=== PATIENT | male | born 1990 | race Two or more races ===

== ENCOUNTER 2024-05-11 08:54 | Inpatient (IN) | payer OTHER ==
[2024-05-11] VITALS (12 sets, daily range): BP systolic 118–150; BP diastolic 53–105; PULSE 53–81; RESP 18–19; TEMP 98.1–98.3
[~2024-05-11] VITALS: Ht 167.6 cm; Wt 86.4 kg
[2024-05-11 09:31] LABS: BASOPHILS % (AUTO) 0.9 % (0.0-2.0); HEMATOCRIT 35.1 % (41-53); HEMOGLOBIN 11.3 g/dL (13.5-17.5); LYMPHOCYTES # (AUTO) 1.5 K/uL (1.0-4.8); LYMPHOCYTES % (AUTO) 21.6 % (22.0-44.0); MEAN CORPUSCULAR HEMOGLOBIN 30.9 pg (26.0-34.0); MEAN CORPUSCULAR HGB CONC 32.1 G/dL (31.0-37.0); MEAN CORPUSCULAR VOLUME 96 fL (80-100); MONOCYTES # (AUTO) 0.5 K/uL (0.1-1.0); MONOCYTES % (AUTO) 7.4 % (2.0-9.0); NEUTROPHILS # (AUTO) 4.5 K/uL (1.8-7.7); NEUTROPHILS % (AUTO) 65.1 % (40.0-70.0); PLATELET COUNT (AUTO) 165 K/uL (150-450); RED BLOOD CELL COUNT(AUTO) 3.64 MIL/uL (4.50-5.90); RED CELL DISTRIBUTION WIDTH 14.1 % (11.5-14.5); WHITE BLOOD COUNT (AUTO) 6.9 K/uL (4.5-11.0)
[2024-05-11 09:39] LABS: CALCIUM, TOTAL 8.8 mg/dL (8.8-10.5); CREATININE 17.01 mg/dL (0.60-1.30)
[2024-05-11] MEDS ORDERED: TAMS0.4C94 PO (11:40)
[2024-05-11] MEDS ORDERED: FAMO20 PO (11:40)
[2024-05-11] MEDS ORDERED: LABE200T56 PO (11:40)
[2024-05-11] MEDS ORDERED: FLUT12AE21 IH (11:40)
[2024-05-11] MEDS ORDERED: [UNRECOGNIZED DRUG - CODE] SQ (11:40)
[2024-05-11] MEDS ORDERED: PRAV40TA4 PO (11:40)
[2024-05-11] MEDS ORDERED: PHOSLOC PO (11:40)
[2024-05-11] MEDS ORDERED: LEVAHFA IH (11:40)
[2024-05-11] MEDS ORDERED: FOLI0.4T6 PO (11:40)
[2024-05-11] MEDS ORDERED: ERGO500054 PO (11:40)
[2024-05-11] MEDS ORDERED: DOCU-385 PO (11:40)
[2024-05-11] MEDS ORDERED: SEVE800T38 PO (11:40)
[2024-05-11] MEDS ORDERED: HEPARIN SODIUM,PORCINE 1,000 UNITS/ML VIAL IVCATH ONE (17:30)
[2024-05-11] MEDS ORDERED: LEVALBUTEROL TARTRATE HFA 45 MCG/PUFF 15 GM INHALER IH PRN (18:45)
[2024-05-11] MEDS ORDERED: ACETAMINOPHEN 325 MG TABLET PO PRN (19:00)
[2024-05-11] MEDS ORDERED: MAGNESIUM HYDROXIDE SUSPENSION 30 ML UDCUP PO PRN (19:00)
[2024-05-11] MEDS ORDERED: HYDROCODONE/ACETAMINOPHEN 5-325 MG TABLET PO PRN (19:00)
[2024-05-11] MEDS ORDERED: BISACODYL 10 MG RECTAL RECTAL SUPPOSITORY PR PRN (19:00)
[2024-05-11] MEDS ORDERED: ALBUTEROL SULFATE 2.5 MG/0.5 ML NEB SOLUTION NEB PRN (19:00)
[2024-05-11] MEDS ORDERED: MORPHINE SULFATE 2 MG/ML SYRINGE IVP PRN (19:00)
[2024-05-11] MEDS ORDERED: IPRATROPIUM BROMIDE 0.5 MG/2.5 ML NEB SOLUTION NEB PRN (19:00)
[2024-05-11] MEDS ORDERED: ONDANSETRON HCL 4 MG/2 ML VIAL IVP PRN (19:00)
[2024-05-11] MEDS ORDERED: ZOLPIDEM TARTRATE 5 MG TABLET PO PRN (19:00)
[2024-05-11] MEDS: HEPARIN SODIUM,PORCINE 1,000 UNITS/ML VIAL IVCATH ONE (19:27)
[2024-05-11] MEDS: FLUTICASONE PROPIONATE HFA 220 MCG/PUFF 12 GM INHR IH SCH (21:00)
[2024-05-11] MEDS: LABETALOL HCL 200 MG TABLET PO SCH (21:00)
[2024-05-11] MEDS: DOCUSATE SODIUM 100 MG CAPSULE PO SCH (21:00)
[2024-05-11] MEDS: CALCIUM ACETATE 667 MG CAPSULE PO SCH (21:09)
[2024-05-11] MEDS: FOLIC ACID/VIT B COMPLEX AND C TABLET PO SCH (21:09)
[2024-05-11] MEDS: SEVELAMER CARBONATE 800 MG TABLET PO SCH (21:10)
[2024-05-11] MEDS: HEPARIN SODIUM,PORCINE 5,000 UNITS/ML VIAL SQ SCH (23:29)
[2024-05-12 04:48] VITALS: BP 138/86; PULSE 64; RESP 18; TEMP 98.3
[2024-05-12] MEDS ORDERED: SEVELAMER CARBONATE 800 MG TABLET PO SCH (08:00)
[2024-05-12] MEDS: PANTOPRAZOLE SODIUM 40 MG DR TABLET PO SCH (08:08)
[2024-05-12] MEDS: FOLIC ACID 0.4 MG TABLET PO SCH (08:08)
[2024-05-12] MEDS: FAMOTIDINE 20 MG TABLET PO SCH (08:08)
[2024-05-12] MEDS: TAMSULOSIN HCL 0.4 MG CAPSULE PO SCH (08:15)
[2024-05-12] MEDS: PRAVASTATIN SODIUM 40 MG TABLET PO SCH (08:15)
[2024-05-12 08:19] VITALS: BP 119/68; PULSE 63; RESP 19; TEMP 98.9
[2024-05-12] MEDS ORDERED: LABETALOL HCL 200 MG TABLET PO SCH (09:00)
[2024-05-12] MEDS ORDERED: HEPARIN SODIUM,PORCINE 1,000 UNITS/ML VIAL IVP ONE (12:00)
[2024-05-12 19:51] VITALS: BP 131/80; PULSE 75; RESP 18; TEMP 98
[2024-05-13] MEDS ORDERED: EPOETIN ALFA 10,000 UNITS/ML 2 ML VIAL SQ SCH (09:00)
[2024-05-18] MEDS ORDERED: ERGOCALCIFEROL (VIT D2) 50,000 UNITS [1,250 MCG] CAPSULE PO SCH (09:00)
== END 2024-05-12 21:42 | DRG 682 ==
LOC: EMS 08:57 → EDH 10:39 → 6S 11:52
PROVIDERS: ADMIT Hospitalist; ATTEND Hospitalist
PROC: 5A1D70Z Performance of Urinary Filtration, Intermittent, Less than 6 Hours Per Day (ICD-10-PCS; principal; 2024-05-11)
DX: I12.0 Hypertensive chronic kidney disease with stage 5 chronic kidney disease or end stage renal disease (principal); N18.6 End stage renal disease; E78.5 Hyperlipidemia, unspecified; J45.909 Unspecified asthma, uncomplicated; N40.0 Benign prostatic hyperplasia without lower urinary tract symptoms; Z88.0 Allergy status to penicillin; Z93.3 Colostomy status; Z99.2 Dependence on renal dialysis; Z88.1 Allergy status to other antibiotic agents; Z79.899 Other long term (current) drug therapy; Z84.1 Family history of disorders of kidney and ureter
CPT/HCPCS: 80048; 85025; 87340; 90935; 99291; J0885; J1644; J3535